=== PATIENT | female | born 1975 | race Caucasian/White ===

== ENCOUNTER 2018-01-31 06:55 | Day surgery (SDC) | payer MEDICAID ==
[~2018-01-31] VITALS: Ht 154.9 cm; Wt 90.3 kg
[~2018-01-31 06:55] MED LIST: AMLO5TAB2 PO; BECL80AE11 IN; CETI1TAB36 PO
[2018-01-31] MEDS ORDERED: IODIXANOL 320MG/ML 100ML BTL IV ONE (07:13)
[2018-01-31] MEDS ORDERED: LIDOCAINE 2%HCL (LOCAL ANESTH.) INJ 20ML MDV ONE (07:13)
[2018-01-31] MEDS ORDERED: ANGIOMAX 250 MG VIAL IV ONE (07:35)
[2018-01-31] MEDS ORDERED: SODIUM CHL 0.9% 0 ML ONE (07:35)
[2018-01-31] MEDS ORDERED: fentaNYL CITRATE 100 MCG/2 ML VL ONE ×2 (07:35→08:27)
[2018-01-31] MEDS ORDERED: MIDAZOLAM HCL 1MG/1ML-2 ML VIAL ONE (07:35)
[2018-01-31] MEDS ORDERED: VERAPAMIL 2.5MG/ML INJ 2ML VIAL IV ONE (07:47)
[2018-01-31] MEDS ORDERED: HEPARIN SODIUM (PORCINE) 5000 UNITS/ML 1ML VIAL ONE (08:30)
== END 2018-01-31 10:35 | disposition home or self-care (01) ==
LOC: CATH 06:55
PROVIDERS: ATTEND Internal Medicine
DX: I20.0 Unstable angina (principal); R94.39 Abnormal result of other cardiovascular function study; J45.909 Unspecified asthma, uncomplicated; I10 Essential (primary) hypertension; F17.210 Nicotine dependence, cigarettes, uncomplicated; Z79.01 Long term (current) use of anticoagulants; E66.9 Obesity, unspecified; Z68.37 Body mass index [BMI] 37.0-37.9, adult
CPT/HCPCS: 93454; C1769; C1894; J1644; J3010; J7030; 99152; J2250; Q9967